=== PATIENT | female | born 1995 | race Two or more races ===

== ENCOUNTER 2025-04-14 10:27 | Emergency (ER) | payer OTHER ==
[~2025-04-14] VITALS: Ht 170.2 cm; Wt 61.2 kg
[2025-04-14] MEDS ORDERED: PRENATAL + DHA1 EAC1 PO (10:41)
[2025-04-14] MEDS ORDERED: KETOROLAC TROMETHAMINE 30 MG VIAL ONE (11:20)
[2025-04-14] MEDS ORDERED: 0.9 % SODIUM CHLORIDE 1,000 ML IV SCH (11:30)
[2025-04-14] MEDS ORDERED: KETOROLAC TROMETHAMINE 30 MG VIAL IV ONE (11:30)
[2025-04-14 11:56] LABS: BASO % 1.5 % (0.1-1.2); EOS # 0.28 (0.04-0.54); EOS % 4.3 % (0.7-7.0); LYMPH # 2.59 (1.18-3.74); LYMPH % 40.0 % (19.3-53.1); MEAN PLATELET VOLUME 10.10 fl (9.4-12.4); MONO # 0.71 (0.24-0.82); MONO % 11.0 % (4.7-12.5); NEUT # 2.77 (1.56-6.13); NEUT % 42.9 % (34.0-71.1); RED CELL DISTRIBUTION WIDTH 11.8 % (11.6-14.4)
[2025-04-14 12:30] LABS: URINE APPEARANCE Clear; URINE BILIRRUBIN Negative (NEGATIVE); URINE BLOOD Negative; URINE COLOR Yellow; URINE GLUCOSE Negative (NEGATIVE); URINE KETONE Negative (NEGATIVE); URINE LEUKOCYTE Negative; URINE NITRATE Negative; URINE PROTEIN Negative (NEGATIVE); URINE UROBILINOGEN 0.2 E.U./dl
[2025-04-14 12:31] LABS: URINE BACTERIA 1711.0 uL (0.0-1933); URINE EPITHELIAL CELLS 21.6 uL (0.0-38.8); URINE RBC 17.0 uL (0.0-20.8); URINE WBC 13.6 uL (0.0-23.2)
[2025-04-14 12:33] LABS: URINE CAST 0.00 uL (0.0-1.40)
== END 2025-04-14 14:19 | disposition home or self-care (01) ==
LOC: ER 10:42
PROVIDERS: Emergency Medicine
DX: O26.891 Other specified pregnancy related conditions, first trimester (principal); R10.2 Pelvic and perineal pain; Z3A.01 Less than 8 weeks gestation of pregnancy